=== PATIENT | female | born 1980 | race Caucasian/White ===

== ENCOUNTER → 2018-01-21 | Outpatient (CLI) | payer OTHER | LOC: M RAD 16:51 | DX: N20.0 Calculus of kidney (principal) | CPT/HCPCS: 74176 ==

== ENCOUNTER → 2020-09-23 | Outpatient (CLI) | payer OTHER ==
--- NOTE | 2020-09-23 08:28 | REP ---
INDICATION: HEARLING LOSS, UNI, LEFT EAR; AT FILE ROOM; SCREENER NOT COM. Sensorineural hearing loss, unilateral, left ear with unrestricted hearing contralateral side. MRI brain and internal auditory canal study without contrast ordered. COMPARISON: No comparison study.. TECHNIQUE: Axial and sagittal imaging planes are utilized for T1 and T2-weighted scans. Sequences include spin-echo, fast spin echo, FLAIR, and diffusion weighted sequences. Thin section 3D T2 images and T1 weighted axial 2 mm slices are included through the internal auditory canals and posterior fossa. FINDINGS: No bony calvarial lesion is seen. Craniocervical junction and upper cervical cord are normal in appearance. There is a very small mucous retention cyst in the floor of the right maxillary sinus. There is no MR evidence of significant paranasal sinus disease. No intraorbital abnormality is seen. Internal auditory canals are normal and symmetric in size. Seventh and 8th cranial nerves are unremarkable. There is no evidence of CP angle cistern or intracanalicular nodule or mass. Cochlear and semicircular canals appear intact. No vascular abnormality is appreciated. The lateral, third, and fourth ventricles are normal in size and position. Lerner-white differentiation pattern is intact above and below the tentorium. There is no evidence of intracranial hemorrhage. No mass, infarction, extra-axial fluid collection or midline shift is seen. No abnormal white matter lesion is seen. IMPRESSION: Negative noncontrast brain MRI and IAC study. <Electronically signed by Austin Richter > 09/23/20 [id number]
== END ==
LOC: M RAD 06:55
PROVIDERS: ATTEND Otolaryngology
DX: H90.42 Sensorineural hearing loss, unilateral, left ear, with unrestricted hearing on the contralateral side (principal)